=== PATIENT | male | born 1950 | race Caucasian/White ===

== ENCOUNTER → 2019-07-14 | Outpatient (CLI) | payer MEDICARE, BC ==
[~2019-07-14] MED LIST: ATOR80; Aspir 8181 MG PO; Crestor40 MG PO; FINA5 PO; GLIP10 PO; IRBESARTAN-HCT1 EACH PO; JALYN 0.5-0.41 EACH PO; Metformin HCl500 MG PO
== END | disposition home or self-care (01) ==
LOC: PLD 11:30 → LAB SHORT 11:30
DX: C44.219 Basal cell carcinoma of skin of left ear and external auricular canal (principal)
CPT/HCPCS: 88305

== ENCOUNTER → 2021-03-15 | Outpatient (CLI) | payer MEDICARE, BC ==
[~2021-03-15] MED LIST changes: +CLOP75 PO; +IRBESARTAN-HCT1 EAC3 PO; -IRBESARTAN-HCT1 EACH PO; -JALYN 0.5-0.41 EACH PO; +JALYN PO
== END | disposition home or self-care (01) ==
LOC: LAB 11:05 → LAB SHORT 11:05
DX: D48.5 Neoplasm of uncertain behavior of skin (principal); L82.1 Other seborrheic keratosis
CPT/HCPCS: 88305

== ENCOUNTER 2022-02-19 22:54 | Emergency (ER) | payer MEDICARE, BC ==
[~2022-02-19] VITALS: Ht 180.3 cm; Wt 113.4 kg
[2022-02-20 01:31] LABS: BASOPHILS ABSOLUTE AUTO 0.08 K/mm3 (0.00-0.23); BASOPHILS PERCENT AUTO 1 % (0-2); EOSINOPHILS ABSOLUTE AUTO 0.64 K/mm3 (0.00-0.68); EOSINOPHILS PERCENT AUTO 6 % (0-6); Hematocrit 40.8 % (37.0-53.0); Hemoglobin 13.1 g/dL (13.5-17.5); IMMATURE GRAN ABSOLUTE AUTO 0.03 K/mm3 (0.00-0.10); IMMATURE GRAN PERCENT AUTO 0 % (0-1); LYMPHOCYTES ABSOLUTE AUTO 1.44 K/mm3 (0.84-5.20); LYMPHOCYTES PERCENT AUTO 13 % (21-46); MONOCYTES ABSOLUTE AUTO 0.65 K/mm3 (0.16-1.47); MONOCYTES PERCENT AUTO 6 % (4-13); Mean Corpuscular HGB 29.2 pg (26.0-34.0); Mean Corpuscular HGB Conc 32.1 g/dL (31.5-36.5); Mean Corpuscular Volume 91 fL (80-100); NEUTROPHILS ABSOLUTE AUTO 8.33 K/mm3 (1.96-9.15); NEUTROPHILS PERCENT AUTO 75 % (41-73); Platelet Count 160 K/mm3 (150-400); RDW Coefficient Variation 13.4 % (11.7-14.2); RDW Standard Deviation 44.6 fL (35.1-46.3); Red Blood Cell Count 4.49 M/mm3 (4.30-5.90); White Blood Cell Count 11.17 K/mm3 (4.00-11.30)
[2022-02-20 01:49] LABS: Albumin, Blood 3.5 g/dL (3.4-5.0); Bilirubin, Direct 0.1 mg/dL (0.0-0.3); Bilirubin, Indirect 0.3 mg/dL (0.1-0.7); Bilirubin, Total 0.4 mg/dL (0.1-1.0); Bun/Creatinine Ratio 17.9 (12.0-20.0); Calcium, Blood 9.1 mg/dL (8.5-10.1); Creatinine, Blood 0.89 mg/dL (0.60-1.20); Globulin, Blood 3.4 g/dL (2.2-4.0); Potassium, Blood 4.8 mmol/L (3.5-5.5); Total Protein, Blood 6.9 g/dL (6.4-8.2)
[2022-02-20 03:26] LABS: Source, Urine Clean Catch
[2022-02-20 03:30] LABS: Bilirubin, Urine Neg (Neg); Blood, Urine Neg (Neg); Glucose Qualitative, Urine Neg (Neg); Ketones, Urine Neg (Neg); Leukocyte Esterase, Urine 1+ (Neg); Nitrite, Urine Neg (Neg); Protein, Urine 1+ (Neg); Specific Gravity, Urine 1.015 (1.003-1.022); Urobilinogen, Urine NORM (Normal)
[2022-02-20 03:46] LABS: Appearance, Urine Clear (Clear); Bacteria Rare /hpf; Color, Urine Yellow (P-Yellow); Red Blood Cells, Urine Not Seen /hpf (0-2); Squamous Epithelial Cells Not Seen /hpf (Few); White Blood Cells, Urine 0-2 /hpf (0-5)
[2022-02-20] MEDS ORDERED: FURO20 PO (04:53)
== END 2022-02-20 04:59 | disposition home or self-care (01) ==
LOC: ER 22:54
PROVIDERS: Student in an Organized Health Care Education/Training Program
DX: R10.11 Right upper quadrant pain (principal); R07.89 Other chest pain; J81.1 Chronic pulmonary edema; R06.2 Wheezing; E11.9 Type 2 diabetes mellitus without complications; I10 Essential (primary) hypertension; E78.00 Pure hypercholesterolemia, unspecified; Z79.899 Other long term (current) drug therapy; Z79.84 Long term (current) use of oral hypoglycemic drugs; Z79.82 Long term (current) use of aspirin
CPT/HCPCS: 36415; 71046; 74177; 80048; 80076; 81001; 85025; 87077; 87086; 87186; 93005; 93010; 96374-59; 99284-25; A9270; J1885; Q9967

== ENCOUNTER 2023-08-08 10:53 | Day surgery (SDC) | payer MEDICARE, BC ==
[~2023-08-08] VITALS: Ht 180.3 cm; Wt 108.4 kg
[~2023-08-08 10:53] MED LIST changes: +Balanced Salt Epinephrine Irrigation Solution 500 mL IR SCH; +FURO20 PO; +IPRATROPIUM BRO30 ML; +Lidocaine HCl/Pf 1% 5 ML VIAL XX SCH; +MELO7.5 PO; +Moxifloxacin HCL 0.5 MG/0.1 ML 0.4MLSYR LEFTEYE SCH; +NS 500 ML IV ONE; +PHENYLEPHRINE\\TROPICAMIDE\\TETRACAINE OPHTHALMIC DILATING SOLN LEFTEYE PRN; +Povidone-Iodine 450 DROP/30 ML Solution LEFTEYE SCH; +Povidone-Iodine 450 DROP/30 ML Solution ONE; +SYMBICORT 160-4.6 GM INH; +Triamcinolone Inj Susp 40 MG / ML 1ML Vial INJ SCH; +Triamcinolone Inj Susp 40 MG / ML 1ML Vial ONE
[2023-08-08] MEDS ORDERED: ELIQUIS5 M2 PO (11:56)
[2023-08-08] MEDS ORDERED: METO100ER PO (11:57)
--- NOTE | 2023-08-08 12:00 | NUR ---
08/08/23 1200 Eva Garces AT 1154 PLEDGET AT 1150
[2023-08-08] MEDS ORDERED: NS 500 ML IV ONE (12:17)
[2023-08-08] MEDS ORDERED: FentaNYL Citrate 50 MCG/ML 2 ML Injection ONE (12:23)
[2023-08-08] MEDS ORDERED: Midazolam HCl 1MG / ML 2ML Vial ONE (12:23)
[2023-08-08] MEDS ORDERED: Tetracaine HCl 0.5% Opth Soln 15 ml LEFTEYE ONE (12:47)
[2023-08-08 13:23] VITALS: BP 176/84
--- NOTE | 2023-08-08 14:03 | NUR ---
08/08/23 1403 DAVID MATTHEW PT CAME OUT OF OR WITH BS OF 57 PT GIVEN APPLE JUICE AND COOKIES PER DAVID PALACIO AND RE CHECK RECHECK CHEM BG 74- ANESTHES OK PT TO DC. PT EDUCATED ON BLOOD SUGAR AND IMPORTANCE OF MONITORING AND WHEN TO EAT CANDY OR DRINK OJ IF POSSIBLE TO INCREASE BG. TOLD PT TO F/U W/ PCP REGARDING HTN AND DM. PT STATES THAT HE HAS LOST WT RESENTLY AND HMGA1C WAS 5.7 AND HE STILL TAKES HIS DM MEDICATIONS.
[2023-08-08] MEDS ORDERED: Dextrose 50% 50 ML Syringe IV ONE (17:22)
== END 2023-08-08 13:49 | disposition home or self-care (01) ==
LOC: ORSCSDS 10:53
PROVIDERS: Ophthalmology
PROC: 08RK3JZ Replacement of Left Lens with Synthetic Substitute, Percutaneous Approach (ICD-10-PCS; principal; 2023-08-08 12:30)
DX: E11.36 Type 2 diabetes mellitus with diabetic cataract (principal); H25.13 Age-related nuclear cataract, bilateral; I10 Essential (primary) hypertension; E78.5 Hyperlipidemia, unspecified; I25.10 Atherosclerotic heart disease of native coronary artery without angina pectoris; E66.9 Obesity, unspecified; Z68.33 Body mass index [BMI] 33.0-33.9, adult; Z79.84 Long term (current) use of oral hypoglycemic drugs; Z79.01 Long term (current) use of anticoagulants; Z79.899 Other long term (current) drug therapy
CPT/HCPCS: 82947; J2250; J3010; J3301; J7040; V2632

== ENCOUNTER 2023-08-15 10:57 | Day surgery (SDC) | payer MEDICARE, BC ==
[~2023-08-15] VITALS: Ht 180.3 cm; Wt 107.7 kg
[~2023-08-15 10:57] MED LIST changes: +ELIQUIS5 M2 PO; +METO100ER PO; -Moxifloxacin HCL 0.5 MG/0.1 ML 0.4MLSYR LEFTEYE SCH; +Moxifloxacin HCL 0.5 MG/0.1 ML 0.4MLSYR RIGHTEYE SCH; -PHENYLEPHRINE\\TROPICAMIDE\\TETRACAINE OPHTHALMIC DILATING SOLN LEFTEYE PRN; +PHENYLEPHRINE\\TROPICAMIDE\\TETRACAINE OPHTHALMIC DILATING SOLN RIGHTEYE PRN; -Povidone-Iodine 450 DROP/30 ML Solution LEFTEYE SCH; +Povidone-Iodine 450 DROP/30 ML Solution RIGHTEYE SCH
[2023-08-15] MEDS ORDERED: Phenylephrine Frt 10% Opth (ORSC) ONE (11:16)
[2023-08-15] MEDS ORDERED: NS 500 ML IV ONE ×2 (11:28→11:36)
--- NOTE | 2023-08-15 11:44 | NUR ---
08/15/23 1144 Mary Jiménez IN AT 1129 ANNABELLE IN AT 1130 CALL LIGHT AT BEDSIDE
[2023-08-15] MEDS ORDERED: Midazolam HCl 1MG / ML 2ML Vial ONE (12:37)
[2023-08-15] MEDS ORDERED: Tetracaine HCl 0.5% Opth Soln 15 ml RIGHTEYE ONE (12:47)
[2023-08-15 13:11] VITALS: BP 172/91
== END 2023-08-15 13:21 | disposition home or self-care (01) ==
LOC: ORSCSDS 10:57
PROVIDERS: Ophthalmology
PROC: 08RJ3JZ Replacement of Right Lens with Synthetic Substitute, Percutaneous Approach (ICD-10-PCS; principal; 2023-08-15 12:30)
DX: E11.36 Type 2 diabetes mellitus with diabetic cataract (principal); H25.11 Age-related nuclear cataract, right eye; Z96.1 Presence of intraocular lens; I10 Essential (primary) hypertension; I25.10 Atherosclerotic heart disease of native coronary artery without angina pectoris; E78.5 Hyperlipidemia, unspecified; E66.9 Obesity, unspecified; Z68.33 Body mass index [BMI] 33.0-33.9, adult; Z79.82 Long term (current) use of aspirin; Z79.01 Long term (current) use of anticoagulants; Z79.84 Long term (current) use of oral hypoglycemic drugs; Z79.899 Other long term (current) drug therapy
CPT/HCPCS: 82947; J2250; J3301; J7040; V2632